=== PATIENT | male | born 1975 | race Caucasian/White ===

== ENCOUNTER → 2017-02-18 | Outpatient (CLI) | payer BC ==
[~2017-02-18] MED LIST: ACET1TAB84 PO; ATOM60CA PO; FISH1CAP3; GADAVIST IV PRN; MELO7.5T5 PO; PRT/20 PO; TRAM1TAB14 PO
--- NOTE | 2017-02-18 18:14 | DIAGNOSTIC IMAGING REPORT ---
MRI OF THE CERVICAL SPINE WITH AND WITHOUT CONTRAST CLINICAL HISTORY: MYELOPATHY, NECK PAIN, NUMBNESS AND TINGLING COMPARISON: None. TECHNIQUE: Utilizing a 1.5 Agueda magnet and dedicated coil, multiplanar, multiecho imaging of the cervical spine was performed before and after intravenous administration of 7 of Gadavist. FINDINGS: There is slight retrolisthesis of C5 on C6. Alignment of the cervical spine is otherwise anatomic. Vertebral body heights are maintained. There is no marrow replacement or marrow edema. No intracanalicular mass or fluid collection is present. Cervical cord signal and caliber are normal. Visualized portions of the posterior fossa are unremarkable. Paravertebral soft tissues are normal. C2-C3: The central canal and neural foramen are patent. C3-C4: The central canal and right neural foramen are patent. There is mild narrowing of the left neural foramen. C4-C5: The central canal and right neural foramen are patent. There is moderate narrowing of the left neural foramen due to uncovertebral hypertrophy. C5-C6: There is minimal disc bulge. The central canal is patent. There is moderate to severe left neural foraminal narrowing with mild right neural foraminal narrowing. C6-C7: The central canal and the neural foramen are patent. C7-T1: The central canal and neural from are patent. IMPRESSION: 1. Patent central canal. Minimal disc bulge at C5-C6. Normal cervical cord signal and caliber. 2. No intracanalicular mass or fluid collection. 3. Multilevel neural foraminal stenosis, as detailed above. Most pronounced at the left C5-C6 neural foramen where there is moderate to severe narrowing due to uncovertebral hypertrophy and facet arthrosis. Electronically signed by: Ten Vernon M.D. 02/18/2017 6:13 PM Dictated Date/Time: 02/18/2017 6:03 PM
[2017-02-18 19:12] LABS: LYME DISEASE AB IGG NEG (NEG); LYME DISEASE AB IGM NEG (NEG)
== END | disposition home or self-care (01) ==
LOC: C.MRI 15:59
PROVIDERS: ATTEND Psychiatry & Neurology Neurology
DX: G95.9 Disease of spinal cord, unspecified (principal); M54.2 Cervicalgia; R20.0 Anesthesia of skin; R20.2 Paresthesia of skin

== ENCOUNTER → 2017-02-26 | Outpatient (CLI) | payer BC ==
[~2017-02-26] MED LIST changes: -GADAVIST IV PRN
[2017-03-03 05:28] LABS: ANTI-CENTROMERE AB <1.0 NEG AI (<1.0 NEG); ANTI-SS-A <1.0 NEG AI (<1.0 NEG); ANTI-SS-B <1.0 NEG AI (<1.0 NEG); DNA ds CRITHIDIA NEGATIVE (NEGATIVE); Sm Antibody <1.0 NEG AI (<1.0 NEG)
== END | disposition home or self-care (01) ==
LOC: C.LAB 17:33
PROVIDERS: ATTEND Psychiatry & Neurology Neurology
DX: R76.8 Other specified abnormal immunological findings in serum (principal)